=== PATIENT | female | born 1965 | race Caucasian/White ===

== ENCOUNTER 2025-08-01 20:08 | Emergency (ER) | payer BC, SELFPAY ==
[2025-08-01 20:12] VITALS: BP 132/82; BMI 21.7
[2025-08-01 20:13] VITALS: BP 132/82
[2025-08-01 20:34] LABS: Hematocrit 33.6 % (37.0-47.0); Hemoglobin 11.4 g/dL (12.0-16.0); Mean Corp Hgb Conc. 33.9 g/dL (33.0-37.0); Mean Corpuscular Volume 89.6 fL (81.0-99.0); Nucleated Red Blood Cells % 0 %; Platelet Count 189 10^3/uL (130-400); Red Cell Dist. Width 12.7 % (11.5-14.5)
[2025-08-01 20:59] LABS: Troponin I < 0.012 ng/ml
[2025-08-01 21:00] VITALS: BP 110/71
[2025-08-01 21:00] LABS: ALT (SGPT) 26 U/L (0-35); AST (SGOT) 29 U/L (14-36); Albumin 4.3 g/dl (3.5-5.0); Alkaline Phosphatase 61 U/L (38-126); Blood Urea Nitrogen 27 mg/dl (7-17); Calcium 9.8 mg/dl (8.4-10.2); Carbon Dioxide 29 mmol/L (22-30); Chloride 103 mmol/L (98-107); Estimated Creatinine Clearance 60 ml/min; Glucose 102 mg/dl (70-99); Potassium 4.0 mmol/L (3.5-5.1); Sodium 135 mmol/L (135-145); Total Protein 7.1 g/dl (6.3-8.2); eGFR > 60.00
--- NOTE | 2025-08-01 21:18 | ED.GENMED ---
History of Present Illness
General
Chief Complaint: Chest Pain
Time Seen by Provider: 08/01/25 21:03
History of Present Illness
History of Present Illness:
Patient presents to the emergency department with resolved episode of chest pain. She is a 60-year-old female with a history of GERD who presents with postprandial centralized chest discomfort. Started around 6:15 PM. There was no radiation. No
associated symptoms such as nausea, diaphoresis, dyspnea. Symptoms resolved while she was in the ambulance. denies any exertional symptoms. Denies history of cardiac disease. Denies lower extremity edema.
Phy Exam
Physical Exam
Physical Exam:
GENERAL APPEARANCE: NAD, well developed/ well nourished
EYES lids/conjunctiva normal
EARS/NOSE/THROAT Mucous membranes moist, uvula midline without oral pharyngeal erythema, exudate or swelling
HEAD/NECK normocephalic atraumatic, neck is supple.
RESPIRATORY respiratory effort normal, speaks in full sentences, no accessory muscle use. Lungs clear to auscultation without rhonchi, wheezes, rales
CARDIAC Regular rate and rhythm, no edema.
ABDOMINAL Soft, ND/NT. No pulsatile masses on exam, rebound tenderness, Sy sign or pain over Mcburney's point.
MUSCLES/EXTREMITIES No abnormal range of motion, no swelling.
SKIN Warm, pink and dry. No rashes
NEUROLOGICAL Speech is clear and appropriate. Normal level of consciousness. 5/5 strength in all extremities.
PSYCH Normal mood and affect. Judgement/competence is appropriate
Scores
Heart Score for Chest Pain Patients
STEMI patient?: Not applicable
Course
Orders/Labs/Results
Orders:
Orders
08/01/25 20:11
Electrocardiogram (*1) Urgent
Reason for Study: Chest Pain
Cardiac Monitoring- Treatment ONCE
EKG- Treatment ONCE
IV Insert/Care/Rem.- Treatment PRN
O2 Therapy [RESP] Urgent
Titrate/Wean O2 to maintain O2 sat greater than (%): 90
Special Instructions: Maintain sats >/=90%
Pulse Ox/spot Check [RESP] Urgent
Quantity: 1
Special Instructions: ON ROOM AIR
08/01/25 20:27
Complete Blood Count/With Diff Urgent
Comprehensive Metabolic Panel Urgent
Troponin I Urgent
08/01/25 21:55
Troponin I Urgent
08/01/25 21:58
CR Chest - 2 Views Urgent
Comment:
Reason For Exam: cp
Abnormal Lab Results
08/01/25
20:27
WBC 4.6 L 10^3/uL
(4.8-10.8)
RBC 3.75 L 10^6/uL
(4.20-5.40)
Hgb 11.4 L g/dL
(12.0-16.0)
Hct 33.6 L %
(37.0-47.0)
Monocytes % 11.3 H %
(1.7-9.3)
BUN 27 H mg/dl
(7-17)
Glucose 102 H mg/dl
(70-99)
08/01/25 20:27
08/01/25 20:27
Vital Signs
Initial and Last Documented VS:
Initial Vital Signs
Temp Pulse Resp BP Pulse Ox
98.1 F 68 17 132/82 99
08/01/25 20:12 08/01/25 20:12 08/01/25 20:12 08/01/25 20:12 08/01/25 20:12
Last Documented Vital Signs
Temp Pulse Resp BP Pulse Ox
98.1 F 70 18 110/69 97
08/01/25 20:12 08/01/25 22:00 08/01/25 22:00 08/01/25 22:00 08/01/25 22:00
*Pulse Oximetry
SaO2: 99
Oxygen Mode of Delivery: Room air
Patient hypoxic: no
*Critical Care Note
Total Time (30-74mins, 75-104mins- exclusive of procedures): Not Applicable
ED Attending Note
ED Attending Note
ED Attending Note:
Clinically suggestive of esophagitis/GERD. Patient is very well-appearing with a normal EKG. She is symptom-free at this time. Labs and initial troponin are reassuring. Will check second troponin. If negative, stable for outpatient follow-up
-
Portions of this chart may have been created with voice recognition software.� Occasional wrong word or��sound alike� substitutions may have occurred due to the inherent limitations of voice recognition software.
Discharge Plan
Departure
Patient Disposition: Home (Routine Discharge)
Date of Disposition: 08/01/25
Time of Disposition: 22:28
Patient with high blood pressure during this ER visit?: No
Discharge Problem:
Chest pain
Instructions: Acid reflux and GERD in adults, Chest pain (DC)
Referrals:
Jessica Alexandre CRNP [Family Provider]
Activity Restrictions/Additional Instructions:
Please follow up with your doctor in the next few days
Return to the ER with new or worsening symptoms
Interventions
Interventions:
*Risk Screen - Suicide Last Done: 08/01/25 20:12
*General Assessment Last Done: 08/01/25 20:12
*Neglect/Abuse Screening Last Done: 08/01/25 20:12
*ED COVID-19 Vaccine History Last Done: 08/01/25 20:12
*ED Influenza Vaccine History Last Done: 08/01/25 20:12
[facility] Risk Assessment Tool Last Done: 08/01/25 20:22
ED- Cardiac Assessment Last Done: 08/01/25 20:12
Discharge Date and Time
Print Language: [place]ET[place]
[2025-08-01 22:00] VITALS: BP 110/69
[2025-08-01 22:26] LABS: Troponin I < 0.012 ng/ml
== END 2025-08-01 22:44 | disposition home or self-care (01) ==
LOC: EMR 20:08
PROVIDERS: Emergency Medicine; EMERGENCY PHYSICIAN Emergency Medicine; FAMILY PHYSICIAN Nurse Practitioner
DX: R07.89 Other chest pain (principal); K21.9 Gastro-esophageal reflux disease without esophagitis
CPT/HCPCS: 99285; 71046; 80053; 84484; 85025; 93005